=== PATIENT | male | born 1960 | race American Indian/Alaskan Native ===

== ENCOUNTER 2021-03-27 07:09 | Emergency (ER) | payer OTHER ==
[~2021-03-27] VITALS: Ht 180.3 cm; Wt 83.9 kg
[~2021-03-27 07:09] MED LIST: ADULT LOW DOSE81 MG PO; GABAPENTIN300 MG PO; NORTRIPTYLINE H50 MG PO; PRINIVIL10 MG PO; VALIUM5 MG PO
--- NOTE | 2021-03-27 15:15 | NUR ---
ER TEAM CODE WAS CALLED JUST [id number]. I RESPONDED, PT HAD [place] BEEN BROUGHT IN FROM [facility], STAFF BROUGHT PT INTO ED TRAUMA IN . PT WAS RATHER VOILENT IN MOVEMENTS-STAFF ALL HELPING TO RESTRAIN PT. IV WAS STARTED, PT DRUGGED INTO COMA. PT NEEDED TO BE RESTAAINED TO PROTECT BOTH MEDICAL STAFF AND PT WELL. AFTER CT, DETERMINED THAT PT HAD STROKE. HIS FAMILY HAD ARRIVED BY NOW, PLACED IN QUIET RM. DR MURILLO CAME AND UPDATED. APPEARS THAT PT WILL NEED TO BE SENT TO [facility]. GAVE FAMILY LIFE[employer]IGHT INFO, ARRANGED LUNCH FOR THEM. FAMILY HAS DECIDE GO VISIT TOMORROW. HAD PRAYER WITH FAMILY [employer][ER LEFT. GAVE ENCOURAGEMENT AND BLESSING. WILL FOLLOW NEEDED
--- NOTE | 2021-03-28 11:52 | EKG ---
[facility] [address] [place] [address] Signed Sinus tachycardia with premature supraventricular complexes Nonspecific ST and T wave abnormality Abnormal ECG No previous ECGs available Confirmed by MAKEDA MCKEON DO ([id number]) on 03/28/2021 11:52:35 AM Electronically Signed By: MAKEDA MCKEON DO 03/28/21 1152 PATIENT NAME: AUGUSTUS HAIRSTON Electrocardiogram DATE OF : 56 PHYSICIAN: MAKEDA MCKEON DO REPORT #: [id number] REPORT IS CONFIDENTIAL AND NOT TO BE RELEASED WITHOUT AUTHORIZATION
== END 2021-03-27 14:48 | disposition short-term general hospital (02) ==
LOC: ED 07:09
DX: I63.9 Cerebral infarction, unspecified (principal); E87.2 Acidosis; Z20.822 Contact with and (suspected) exposure to COVID-19; I25.2 Old myocardial infarction; Z79.899 Other long term (current) drug therapy
CPT/HCPCS: 31500; 36600; 51702; 70450; 70496; 70498; 71045; 80048; 80053; 81001; 82803; 83605; 83735; 84484; 85025; 85610; 93005; 93010; 94002; 99285-25; C9803; G0480; J2704; J3010; J7030; J7121; Q9967; U0003